=== PATIENT | female | born 1940 | race Caucasian/White ===

== ENCOUNTER 2017-03-12 17:11 | Emergency (ER) | payer OTHER ==
[~2017-03-12] VITALS: Ht 160 cm; Wt 68.0 kg
[2017-03-12 17:12] VITALS: BP 161/70; PULSE 70; RESP 16; TEMP 98.5; O2SAT 96
--- NOTE | 2017-03-12 17:21 | PD ---
Physical Exam Date Seen by Provider: Mar 12, 2017 Time Seen by Provider: 17:19 Narrative 76 YOWF C/O UTI SYMPTOMS. HEMATURIA. H/O UTI"S AND KIDNEY STONE VS REVIEWED WAITING FOR BED PLACEMENT Data Data Last Documented VS Vital Signs Date Time Temp Pulse Resp B/P Pulse Ox O2 Delivery O2 Flow Rate FiO2 03/12/17 17:12 98.5 70 16 161/70 96 MDM Supervised Visit with ELIZABETH: Saw Argueta Mar 12, 2017 17:21
[2017-03-12 18:07] LABS: BACTERIA, URINE RARE /hpf; BLOOD, URINE MOD (NEG); COMMENT (UR) CULT NOT INDICATED; CULTURE IF INDICATED CULT NOT INDICATED; GLUCOSE,URINE NEG (NEG); KETONE, URINE NEG (NEG); MUCUS URINE FEW /lpf (OCC); NITRITE,URINE NEG (NEG); SQUAMOUS EPITHELIAL CELL URINE 1 /hpf (0-5); URINE COLOR LIGHT-YELLOW (YELLW/STRAW)
== END 2017-03-12 19:46 | disposition left against medical advice (07) ==
LOC: NED 17:11
DX: R31.9 Hematuria, unspecified (principal); Z87.442 Personal history of urinary calculi
CPT/HCPCS: 81001; 99281